=== PATIENT | male | born 1985 | race Caucasian/White ===

== ENCOUNTER 2018-05-01 12:24 | Emergency (ER) | payer SELFPAY ==
[~2018-05-01] VITALS: Ht 180.3 cm; Wt 84.1 kg
[~2018-05-01 12:24] MED LIST: NO HOME MEDICATIONS; NORCO 325 MG-7.1 TAB PO
[2018-05-01 12:43] VITALS: BP 137/71; PULSE 87; TEMP 97.4
[2018-05-01] MEDS ORDERED: PROTONIX 40MG T40 MG PO (12:46)
== END 2018-05-01 13:50 | disposition home or self-care (01) ==
LOC: COL.ER 12:24
DX: S93.401A Sprain of unspecified ligament of right ankle, initial encounter (principal); K21.9 Gastro-esophageal reflux disease without esophagitis; X50.0XXA Overexertion from strenuous movement or load, initial encounter; Y93.67 Activity, basketball